=== PATIENT | female | born 1980 | race Caucasian/White ===

== ENCOUNTER 2019-02-02 08:34 | Inpatient (IN) | payer OTHER ==
--- OUTSIDE RECORDS SUMMARY | ~2019-02-02 | XMS | Encounter Summary ---
Demographics + + + | Address | NEED ADDRESS | | | [place] [address] | + + + | Home Phone | | + + + | Preferred Language | Unknown | + + + | Marital Status | | + + + | Zoroastrianism Affiliation | Unknown | + + + | Race | Unknown | + + + | Ethnic Group | Unknown | + + + Author + + + | Author | [facility] | | | and [place] | + + + | Organization | [facility] | | | and [place] | + + + | Address | Unknown | + + + | Phone | Unavailable | + + + Support + + + + + | Name | Relationship | Address | Phone | + + + + + | Frances Borjas | ECON | [address] | | | | | [place] | | | | | [address] | | + + + + + Care Team Providers + +------+ + | Care Grader Green Meat Name | Role | Phone | + +------+ + | Susan Gore NP | PCP | | + +------+ + Encounter Details +--------+ + + + + | Date | Type | Department | Care Team | Description | +--------+ + + + + | 11/05/ | Orders Only | [facility] | Jeanine Blevins, | Encounter for | | 2019 | | [facility] | MD [address] | supervision of other | | | | [facility] | [address], | normal , | | | | [address] | [place] [address] | second trimester | | | | [address], | [phone] | | | | | [place] [address] | | | | | | [phone] | | | +--------+ + + + + Social History + +-------+ +--------+------+ | Tobacco Use | Types | Packs/Day | Years | Date | | | | | Used | | + +-------+ +--------+------+ | Never Smoker | | | | | + +-------+ +--------+------+ + + + | Sex Assigned at | Date Recorded | | | | + + + | Not on file | | + + + + + + + | Job Start Date | Occupation | Industry | + + + + | Not on file | Not on file | Not on file | + + + + + + + + | Travel History | Travel Start | Travel End | + + + + + + | No recent travel history available. | + + documented as of this encounter Plan of Treatment + + +--------+ + + | Name | Type | Priori | Associated Diagnoses | Order Schedule | | | | ty | | | + + +--------+ + + | Culture, Urine | Microbiolog | Routin | Encounter for | Expected: | | | y | e | supervision of other | 09/15/2018, Expires: | | | | | normal , | 09/16/2019 | | | | | second trimester | | + + +--------+ + + documented as of this encounter Visit Diagnoses + + | Diagnosis | + + | Encounter for supervision of other normal , second trimester | + + documented in this encounter"
--- OUTSIDE RECORDS SUMMARY | ~2019-02-02 | XMS | Encounter Summary ---
Demographics + + + | Address | NEED ADDRESS | | | [place] [address] | + + + | Home Phone | | + + + | Preferred Language | Unknown | + + + | Marital Status | | + + + | Episcopal Affiliation | Unknown | + + + | Race | Unknown | + + + | Ethnic Group | Unknown | + + + Author + + + | Author | [facility] | | | and [place] | + + + | Organization | [facility] | | | and [...] [place] | | | | | [address] | | + + + + + Care Team Providers + +------+ + | Care Pest Control Supervisor Name | Role | Phone | + +------+ + | Susan Gore NP | PCP | | + +------+ + Encounter Details +--------+ + + + + | Date | Type | Department | Care Team | Description | +--------+ + + + + | 05/29/ | Orders Only | [facility] | Bety Adkins, | | | 2018 | | [address] | [address] | | | | | [place], [place] | [address] | | | | | [address] | [place] [address] | | | | | [phone] | [phone] | | | | | | | | +--------+ + + + + Social History + +-------+ +--------+------+ | Tobacco Use | Types | Packs/Day | Years | Date | | | | | Used | | + +-------+ +--------+------+ | Never Assessed | | | | | + +-------+ [...] as of this encounter Plan of Treatment Not on filedocumented as of this encounter Procedures + +--------+ + + + | Procedure Name | Priori | Date/Time | Associated Diagnosis | Comments | | | ty | | | | + +--------+ + + + | EXTERNAL LAB: CBC | Routin | 08/18/2018 | | Results for this | | | e | 3:16 PM | | procedure are in the | | | | PDT | | results section. | + +--------+ + + + | MATERNAL SCREEN, 1ST | Routin | 08/18/2018 | | Results for this | | TRIMESTER | e | 3:16 PM | | procedure are in the | | | | PDT | | results section. | + +--------+ + + + | HEMOGLOBIN A1C | Routin | 08/18/2018 | | Results for this | | | e | 3:16 PM | | procedure are in the | | | | PDT | | results section. | + +--------+ + + + documented in this encounter Results Maternal Screen, 1st Trimester (08/18/2018 3:16 PM PDT) + + + + + + | Component | Value | Ref Range | Performed | Pathologist | | | | | At | Signature | + + + + + + | Screen | Report | | EXTERNAL | | | Result | | | LAB | | + + + + + + | DS Screen | *Screen Negative* | | EXTERNAL | | | Result | | | LAB | | + + + + + + | CROWN RUMP | 69.5 | | EXTERNAL | | | LENGTH | | | LAB | | + + + + + + | CRL Scan | Date:Comment: | | EXTERNAL | | | | | | LAB | | | | 08/18/2018 | | | | + + + + + + | TELECOMMUNICATIONS PROFESSIONAL | [id number] | | EXTERNAL | | | | | | LAB | | | CERTIFICATI | | | | | | ON # | | | | | + + + + + + | Gestational | 13.0 | wk | EXTERNAL | | | age | | | LAB | | + + + + + + | Maternal | 38.1 | a | EXTERNAL | | | age AT LEONELA | | | LAB | | + + + + + + | Race | | | EXTERNAL | | | | | | LAB | | + + + + + + | Patient | 174 | [lb_av] | EXTERNAL | | | Weight | | | LAB | | + + + + + + | NUMBER OF | 1 | | EXTERNAL | | | FETUSES | | | LAB | | + + + + + + | Nuchal | 1.9 | mm | EXTERNAL | | | Translucenc | | | LAB | | | y MoM | | | | | + + + + + + | Result | 1.11 | | EXTERNAL | | | | | | LAB | | + + + + + + | hCG MoM, | 82.4 | [iU]/mL | EXTERNAL | | | 1st | | | LAB | | | Trimester | | | | | | (REF) | | | | | + + + + + + | hCG MoM, | 1.05 | | EXTERNAL | | | 1st | | | LAB | | | Trimester | | | | | | (REF) | | | | | + + + + + + | Patient's | 1014.6 | ng/mL | EXTERNAL | | | hCG, 1st | | | LAB | | | Trimester | | | | | | (REF) | | | | | + + + + + + | hCG MoM, | 1.10 | | EXTERNAL | | | 1st | | | LAB | | | Trimester | | | | | | (REF) | | | | | + + + + + + | Inhibin A | 154.5 | pg/mL | EXTERNAL | | | | | | LAB | | + + + + + + | WHITNEY Mom | 0.75 | | EXTERNAL | | | Value | | | LAB | | + + + + + + | DS RISK | Screening Risk:Comment: | | EXTERNAL | | | (MATERNAL | | | LAB | | | AGE) | 1 in 4800 | | | | + + + + + + | DS RISK (AT | Age Risk:Comment: | | EXTERNAL | | | | 1 | | LAB | | | MID-TRIMEST | in 116 | | | | | ER) | | | | | + + + + + + | T18 Patient | Screening Risk:Comment: | | EXTERNAL | | | Risk | | | LAB | | | | <1 in 38700 | | | | + + + + + + | TRI 18 SCR | Age Risk:Comment: | | EXTERNAL | | | RISK EST | 1 | | LAB | | | | in 227 | | | | + + + + + + | Interpretat | (See Below)Comment: | | EXTERNAL | | | ion: | Screen Negative for Down | | LAB | | | | syndrome | | | | + + + + + + | T18 Risk | (See Below)Comment: | | EXTERNAL | | | Interpretat | Screen Negative for | | LAB | | | ion | Trisomy 18 | | | | + + + + + + | Comment | (See Below)Comment: The | | EXTERNAL | | | | [employer] | | LAB | | | | Obstetricians and | | | | | | Gynecologists | | | | | | recommendsthat all women | | | | | | be counseled regarding | | | | | | the differences | | | | | | betweenscreening and | | | | | | invasive diagnostic | | | | | | testing. | | | | + + + + + + | Note: | (See Below)Comment: This | | EXTERNAL | | | | test does not screen | | LAB | | | | for open neural tube | | | | | | defects(ONTD). Measuring | | | | | | MS-AFP (test number | | | | | | [id number]) in the | | | | | | secondtrimester can | | | | | | provide ONTD screening. | | | | | | The optimalgestational | | | | | | age for ONTD screening | | | | | | is 16 - 18 | | | | | | weeks.Alyssa Be | | | | | | Ai, Ph.D., | | | | | | FACPrincipal Genetics | | | | | | Technical | | | | | | DirectorReferences: | | | | | | Available upon | | | | | | requestRisk CutoffsDown | | | | | | Syndrome (DS) cutoff | | | | | | 1:250Trisomy 18 (T18) | | | | | | cutoff 1:100For | | | | | | further inquiries | | | | | | contact [facility] | | | | | | Services | | | | | | [phone]. | | | | + + + + + + + + | Specimen | + + | | + + + +---------+ + + | Performing | Address | City/State/Zipcode | Phone Number | | Organization | | | | + +---------+ + + | EXTERNAL LAB | | | | + +---------+ + + External Lab: CBC (08/18/2018 3:16 PM PDT) + + + + + + | Component | Value | Ref Range | Performed | Pathologist | | | | | At | Signature | + + + + + + | WBC | 9.21 | 3.80 - 11.00 | EXTERNAL | | | | | 10*3/uL | LAB | | + + + + + + | RED CELL | 3.84 | 3.70 - 5.10 | EXTERNAL | | | COUNT | | 10*6/uL | LAB | | + + + + + + | Hgb | 12.1 | 11.3 - 15.5 | EXTERNAL | | | | | g/dL | LAB | | + + + + + + | Hematocrit, | 35.8 | 34.0 - 46.0 % | EXTERNAL | | | POC | | | LAB | | + + + + + + | MCV | 93.2 | 80.0 - 100.0 fL | EXTERNAL | | | | | | LAB | | + + + + + + | MCH | 31.4 | 27.0 - 34.0 pg | EXTERNAL | | | | | | LAB | | + + + + + + | MCHC | 33.7 | 32.0 - 35.5 | EXTERNAL | | | | | g/dL | LAB | | + + + + + + | RDW-CV | 44.6 | 37 - 53 fL | EXTERNAL | | | | | | LAB | | + + + + + + | Platelet | 253 | 150 - 400 | EXTERNAL | | | Count | | 10*3/uL | LAB | | | Plasma | | | | | + + + + + + | MPV | 9.5 | fL | EXTERNAL | | | | | | LAB | | + + + + + + | Differentia | AUTOMATED | | EXTERNAL | | | l Type | | | LAB | | + + + + + + | % Segmented | 69.49 | % | EXTERNAL | | | | | | LAB | | | Neutrophils | | | | | + + + + + + | % | 24.22 | % | EXTERNAL | | | Lymphocytes | | | LAB | | + + + + + + | % Monocytes | 4.82 | % | EXTERNAL | | | | | | LAB | | + + + + + + | % | 1.14 | % | EXTERNAL | | | Eosinophils | | | LAB | | + + + + + + | % Basophils | 0.33 | % | EXTERNAL | | | | | | LAB | | + + + + + + | Absolute | 6.40 | 1.90 - 7.40 | EXTERNAL | | | Segmented | | 10*3/uL | LAB | | | Neutrophils | | | | | + + + + + + | Absolute | 2.23 | 1.00 - 3.90 | EXTERNAL | | | Lymphocytes | | 10*3/uL | LAB | | + + + + + + | Absolute | 0.44 | 0.00 - 0.80 | EXTERNAL | | | Monocytes | | 10*3/uL | LAB | | + + + + + + | Absolute | 0.11 | 0.00 - 0.50 | EXTERNAL | | | Eosinophils | | 10*3/uL | LAB | | + + + + + + | Absolute | 0.03 | 0.00 - 0.10 | EXTERNAL | | | Basophils | | 10*3/uL | LAB | | + + + + + + + + | Specimen | + + | Blood specimen | | (specimen) | + + + +---------+ + + | Performing | Address | City/State/Zipcode | Phone Number | | Organization | | | | + +---------+ + + | EXTERNAL LAB | | | | + +---------+ + + Hemoglobin A1C (08/18/2018 3:16 PM PDT) + + + + + + | Component | Value | Ref Range | Performed | Pathologist | | | | | At | Signature | + + + + + + | Hemoglobin | 4.9Comment: HbA1c method | 4.0 - 6.0 % | EXTERNAL | | | A1c | is certified by [facility] | | LAB | | | | and traceable to the | | | | | | DCCT reference method. | | | | | | ADA guidelines indicate: | | | | | | Prediabetes: 5.7 - | | | | | | 6.4 Diabetes: >6.4 | | | | | | Glycemic control | | | | | | for adults with | | | | | | diabetes: <7.0 Effective | | | | | | 04/07/2018: Note New | | | | | | Method | | | | + + + + + + | Glycohemogl | 94Comment: Estimated | mg/dL | EXTERNAL | | | obin | Average Glucose | | LAB | | | (GHb),Total | calculated from | | | | | | hemoglobin A1c by use of | | | | | | the ADA recommended | | | | | | formula. | | | | + + + + + + + + | Specimen | + + | Blood specimen | | (specimen) | + + + +---------+ + + | Performing | Address | City/State/Zipcode | Phone Number | | Organization | | | | + +---------+ + + | EXTERNAL LAB | | | | + +---------+ + + documented in this encounter Visit Diagnoses Not on filedocumented in this encounter"
--- OUTSIDE RECORDS SUMMARY | ~2019-02-02 | XMS | Encounter Summary ---
Demographics + + + | Address | NEED ADDRESS | | | [place] [address] | + + + | Home Phone | | + + + | Preferred Language | Unknown | + + + | Marital Status | | + + + | Jehovah'S Witness Affiliation | Unknown | + + + | Race | Unknown | + + + | Ethnic Group | Unknown | + + + Author + + + | Author | [facility] | | | and [place] | + + + | Organization | [facility] | | | and [...] [place] | | | | | [address] | | + + + + + Care Team Providers + +------+ + | Care Cover Operator Name | Role | Phone | + +------+ + | Susan Gore NP | PCP | | + +------+ + Encounter Details +--------+ + + + + | Date | Type | Department | Care Team | Description | +--------+ + + + + | 11/10/ | Hospital | [facility] | Jeanine Blevins, | Diagnosis unknown | | 2019 | Encounter | [facility] | MD [address] | | | | | [address] | [address], | | | | | [address] | [place] [address] | | | | | [place], [place] | [phone] | | | | | [address] | | | | | | [phone] | | | +--------+ + + + [...] + + documented as of this encounter Medications at Time of Discharge + + + +---------+ + + | Medication | Sig | Dispensed | Refills | Start | End Date | | | | | | Date | | + + + +---------+ + + | Fish Oil 1000 MG | Take 1 g by mouth | | 0 | 07/22/19 | | | delayed release | daily. | | | 19 | | | capsule | | | | | | + + + +---------+ + + | | Take by mouth. | | 0 | 07/22/19 | | | VIT-DSS-FE CBN-FA PO | | | | 19 | | + + + +---------+ + + documented as of this encounter Plan of Treatment Not on filedocumented as of this encounter Procedures + +--------+ + + + | Procedure Name | Priori | Date/Time | Associated Diagnosis | Comments | | | ty | | | | + +--------+ + + + | US OB FOLLOW UP | Routin | 11/10/2018 | Diagnosis unknown | Results for this | | TRANSABDOMINAL | e | 11:00 AM | | procedure are in the | | | | PDT | | results section. | + +--------+ + + + documented in this encounter Results US OB Follow Up Transabdominal (11/10/2018 11:00 AM PDT) + + | Specimen | + + | | + + + +--------- ------+ | Narrative | Performe d At | + +--------- ------+ | Indication | [facility] | | ========= F/U 4 chamber heart, growth, legs and arms. Method ====== | | | Transabdominal ultrasound examination, Voluson E10. View: Sufficient | | | ========= Lora . Number of fetuses: 1. | | | Dating ====== | | | Date Details | | | | | | Gest. age | | | LEONELA External assessment | | | | | | | | | 24 w + 4 d | | | 02/26/2019 U/S | | | 11/10/2018 | | | based upon AC, BPD, Femur, HC | | | 24 w + 5 d | | | 02/25/2019 Assigned dating Dating | | | performed on 11/10/2018, based on the external assessment | | | 24 w + 4 d | | | 02/26/2019 General Evaluation Cardiac | | | activity present. FHR 152 bpm. movements visualized, present. | | | Presentation cephalic. Placenta posterior. Amniotic fluid Amount of | | | AF: Subjectively normal. Biometry Main | | | Biometry: BPD | | | 60.8 mm | | | 24w 5d 49% | | | Hadlock OFD | | | 81.1 mm | | | 24w 4d 65% | | | Nicolaides HC | | | 227.1 mm | | | 24w 5d 36% | | | Hadlock AC | | | 201.3 mm | | | 24w 5d 47% | | | Hadlock Femur | | | 44.3 mm 24w | | | 4d 37% | | | Hadlock HC / AC | | | 1.13 | | | -/- 50% | | | Paredes Weight Calculation: EFW | | | 724 g | | | 24w 3d | | | 45% Hadlock EFW (lb,oz) | | | 1 lb 10 oz EFW by | | | Hadlock | | | ([id number]) Head / Face / Neck Biometry: Cephalic index | | | 0.75 | | | | | | 21% Chitty Extremities / Bony Struc | | | Biometry: FL / BPD | | | 0.73 | | | -/- | | | Hadlock FL / HC | | | 0.20 | | | -/- | | | Hadlock FL / AC | | | 0.22 | | | 20w 3d | | | Hadlock Other Structures | | | Biometry: FHR | | | 152 bpm | | | Maternal Structures Cervix | | | Cervical length 40.6 mm Human Resource Analyst | | | Comments Measurements compatible with dates. | | | Cervical length appears within normal limits. 4 chamber heart | | | visualized. Upper and lower extremities visualized. Scanned by Tyrell | | | jania Douglas and revenue manager listed below. Impression ========= | | | as above single live iup, fhr 152, casandra normal cervix reassuring, the | | | 4 chamber heart is wnl and the extremities are seen and appear normal. | | | the interval growth is symetric and also normal Electronically | | | signed by: Pradip Ruffin MD on 12/10/2018 at 16:14 | | | | | |Scanned by jania Finnegan and revenue manager listed below. | | | | | |Impression | | |========= | | | | | |as above single live iup, fhr 152, casandra normal cervix reassuring, the 4 chamber heart is wnl and the extremities are seen and appear normal. the interval growth is symetric | | |and also normal | | | | | | | | | | | | | | + +--------- ------+ + + | Procedure Note | + + | Mirza, Rad Results In - 12/10/2018 4:14 PM PDT Indication ========= F/U 4 chamber | | heart, growth, legs and arms. Method ====== Transabdominal ultrasound examination, | | Voluson E10. View: Sufficient ========= Lora . Number of | | fetuses: 1. Dating ====== Date | | Details | | Gest. age LEONELA External assessment | | | | 24 w + 4 d 02/26/2019 | | U/S 11/10/2018 based upon AC, | | BPD, Femur, HC 24 w + 5 d | | 02/25/2019 Assigned dating Dating performed on 11/10/2018, based on | | the external assessment 24 w + 4 d | | 02/26/2019 General Evaluation Cardiac activity present. FHR 152 bpm. | | movements visualized, present. Presentation cephalic. Placenta posterior. | | Amniotic fluid Amount of AF: Subjectively normal. Biometry Main | | Biometry: BPD 60.8 mm | | 24w 5d 49% Hadlock OFD | | 81.1 mm 24w 4d | | 65% Nicolaides HC | | 227.1 mm 24w 5d 36% | | Hadlock AC 201.3 mm | | 24w 5d 47% Hadlock Femur | | 44.3 mm 24w 4d | | 37% Hadlock HC / AC | | 1.13 -/- 50% | | Paredes Weight Calculation: EFW | | 724 g 24w 3d 45% | | Hadlock EFW (lb,oz) 1 lb 10 oz | | EFW by Hadlock ([id number]) Head / Face / Neck | | Biometry: Cephalic index 0.75 | | 21% Chitty Extremities / | | Bony Struc Biometry: FL / BPD 0.73 | | -/- Hadlock | | FL / HC 0.20 | | -/- Hadlock FL / AC | | 0.22 20w 3d | | Hadlock Other Structures Biometry: FHR | | 152 bpm Maternal | | Structures Cervix Cervical length 40.6 | | mm Human Resource Analyst Comments Measurements compatible with dates. | | Cervical length appears within normal limits. 4 chamber heart visualized. Upper and | | lower extremities visualized. Scanned by Tyrell Douglas, student and revenue manager listed | | below. Impression ========= as above single live iup, fhr 152, casandra normal cervix | | reassuring, the 4 chamber heart is wnl and the extremities are seen and appear normal. | | the interval growth is symetric and also normal | |EFW 724 g 24w 3d 45% Hadlock | |EFW (lb,oz) 1 lb 10 oz | |EFW by Hadlock ([id number]) | |Head / Face / Neck Biometry: | |Cephalic index 0.75 21% Chitty | |Extremities / Bony Struc Biometry: | |FL / BPD 0.73 -/- Hadlock | |FL / HC 0.20 -/- Hadlock | |FL / AC 0.22 20w 3d Hadlock | |Other Structures Biometry: | |FHR 152 bpm | | | |Maternal Structures | | | | | |Cervix Cervical length 40.6 mm | | | |Human Resource Analyst Comments | | | | | |Measurements compatible with dates. | |Cervical length appears within normal limits. | |4 chamber heart visualized. | |Upper and lower extremities visualized. | | | |Scanned by Tyrell Douglas, student and revenue manager listed below. | | | |Impression | |========= | | | |as above single live iup, fhr 152, casandra normal cervix reassuring, the 4 chamber heart is wnl and the extremities are seen and appear normal. the interval growth is symetric | |and also normal | | | | | | | + + + +---------+ + + | Performing | Address | City/State/Zipcode | Phone Number | | Organization | | | | + +---------+ + + | [facility] | | | | + +---------+ + + documented in this encounter Visit Diagnoses + + | Diagnosis | + + | Diagnosis unknown Other unknown and unspecified cause of morbidity or mortality | + + documented in this encounter"
--- OUTSIDE RECORDS SUMMARY | ~2019-02-02 | XMS | Encounter Summary ---
Demographics + + + | Address | NEED ADDRESS | | | [place] [address] | + + + | Home Phone | | + + + | Preferred Language | Unknown | + + + | Marital Status | | + + + | Mosque Affiliation | Unknown | + + + | Race | Unknown | + + + | Ethnic Group | Unknown | + + + Author + + + | Author | [facility] | | | and [place] | + + + | Organization | [facility] | | | and [...] [place] | | | | | [address] | | + + + + + Care Team Providers + +------+ + | Care Architect Marine Name | Role | Phone | + +------+ + | Susan Gore NP | PCP | | + +------+ + Encounter Details +--------+ + + + + | Date | Type | Department | Care Team | Description | +--------+ + + + + | 10// | Orders Only | [facility] | Conversion | | | 2017 | | CONVERSION [address] | Transaction, | | | | | [address] | Provider Unknown | | | | | [place], [place] | [phone] | | | | | [address] | | | | | | [phone] | | | +--------+ + + + [...] Not on filedocumented as of this encounter Visit Diagnoses Not on filedocumented in this encounter"
--- OUTSIDE RECORDS SUMMARY | ~2019-02-02 | XMS | Encounter Summary ---
Demographics + + + | Address | NEED ADDRESS | | | [place] [address] | + + + | Home Phone | | + + + | Preferred Language | Unknown | + + + | Marital Status | | + + + | Taoist Affiliation | Unknown | + + + | Race | Unknown | + + + | Ethnic Group | Unknown | + + + Author + + + | Author | [facility] | | | and [place] | + + + | Organization | [facility] | | | and [place] | + + + | Address | Unknown | + + + | Phone | Unavailable | + + + Support + + + + + | Name | Relationship | Address | Phone | + + + + + | Frances Borjas | ECON | [address] | | | | | [place] | | | | | [address] | | + + + + + Care Team Providers + +------+ + | Care Aircraft Tool Maker Name | Role | Phone | + +------+ + PCP | Unavailable | + +------+ + Encounter Details +--------+ + + + + | Date | Type | Department | Care Team | Description | +--------+ + + + + | 12/23/ | Emergency | [facility] | Lorenzo Dominguez DO | Pneumonia of right | | 2017 | | MEDICAL [facility]ENTER | [address] [place] | upper lobe due to | | | | EM[facility]ENTER | [address] [place], [place] | infectious organism | | | | [address] | [address] | (HCC) | | | | [place], [place] | [phone] | | | | | [address] | | | | | | [phone] | | | +--------+ + + + [...] + + documented as of this encounter Last Filed Vital Signs + + + + + | Vital Sign | Reading | Time Taken | Comments | + + + + + | Blood Pressure | 123/76 | 12/23/2016 6:14 PM | | | | | PDT | | + + + + + | Pulse | 89 | 12/23/2016 6:14 PM | | | | | PDT | | + + + + + | Temperature | 36.9 C (98.4 F) | 12/23/2016 6:14 PM | | | | | PDT | | + + + + + | Respiratory Rate | 16 | 12/23/2016 6:14 PM | | | | | PDT | | + + + + + | Oxygen Saturation | - | - | | + + + + + | Inhaled Oxygen | - | - | | | Concentration | | | | + + + + + | Weight | 75.9 kg (167 lb 5.3 | 12/23/2016 6:14 PM | | | | oz) | PDT | | + + + + + | Height | - | - | | + + + + + | Body Mass Index | 26.21 | 09/08/2016 3:34 PM | | | | | PDT | | + + + + + documented in this encounter Medications at Time of Discharge + + + +---------+ + + | Medication | Sig | Dispensed | Refills | Start | End Date | | | | | | Date | | + + + +---------+ + + | | Take 5 mLs by mouth | | 0 | 12/24/19 | | | acetaminophen-codein | every 6 (six) hours | | | 17 | 9 | | e 120-12 mg/5 mL | as needed for Pain. | | | | | | solution | | | | | | + + + +---------+ + + documented as of this encounter Plan of Treatment Not on filedocumented as of this encounter Visit Diagnoses + + | Diagnosis | + + | Pneumonia of right upper lobe due to infectious organism (HCC) | + + documented in this encounter"
--- OUTSIDE RECORDS SUMMARY | ~2019-02-02 | XMS | Clinical Summary ---
Demographics + + + | Address | NEED ADDRESS | | | [place] [address] | + + + | Home Phone | | + + + | Preferred Language | Unknown | + + + | Marital Status | | + + + | Taoism Affiliation | Unknown | + + + | Race | Unknown | + + + | Ethnic Group | Unknown | + + + Author + + + | Author | [facility] (Historical as of | | | 11-06-18) | + + + | Organization | [facility] (Historical as of | | | 11-06-18) | + + + | Address | Unknown | + + + | Phone | Unavailable | + + + Support + + +---------+ + | Name | Relationship | Address | Phone | + + +---------+ + | Frances Borjas | ECON | Unknown | | + + +---------+ + Care Team Providers + +------+ + | Care Digital Imaging Specialist Name | Role | Phone | + +------+ + | Susan Gore NP | PP | Unavailable | + +------+ + Allergies + + + + + + | Active Allergy | Reactions | Severity | Noted | Comments | | | | | Date | | + + + + + + | Doxycycline | Other (See Comments) | Medium | 03/01/20 | Flu like symptoms. | | | | | 19 | | + + + + + + Current Medications + + +-------+---------+------+------+-------+ | Prescription | Sig. | Disp. | Refills | Star | End | Statu | | | | | | t | Date | s | | | | | | Date | | | + + +-------+---------+------+------+-------+ | | Take 5 mLs by mouth | | | | | Activ | | acetaminophen-codein | every 6 (six) hours | | | | | e | | e 120-12 MG/5ML | as needed for Pain. | | | | | | | solution | | | | | | | + + +-------+---------+------+------+-------+ | | Take by mouth. | | | | | Activ | | Vit-DSS-Fe Cbn-FA | | | | | | e | | (PRENACARE PO) | | | | | | | + + +-------+---------+------+------+-------+ | fish oil omega-3 | Take 1 g by mouth | | | | | Activ | | fatty acids 1000 MG | daily. | | | | | e | | capsule | | | | | | | + + +-------+---------+------+------+-------+ Active Problems + + + | Problem | Noted Date | + + + | Breast pain, right | 10/12/2018 | + + + + + | Overview: 10/12/18: reports onset of right breast pain, no | | palpable masses, hx of implantsPlan: breast US ordered | |Plan: breast US ordered | + + + + + | Encounter for supervision of normal in second trimester | 09/15/2018 | + + + | Surrogate , antepartum | 07/21/2018 | + + + | Antepartum multigravida of advanced maternal age | 07/21/2018 | + + + + + | Overview: A POS: negative antibody | + + + + + + | Currently | Estimated Date of Delivery | Comments | + + + + | Yes | 02/26/2019 | Based on last | | | | menstrual period of | | | | 05/22/2018 | + + + + Immunizations +------+ + + | Name | Dates Previously Given | Next Due | +------+ + + | Tdap | 05/09/2009 | | +------+ + + Family History + + +------+ + | Medical History | Relation | Name | Comments | + + +------+ + | Mult sclerosis | Paternal | | | | | Grandmoth | | | | | er | | | + + +------+ + | Breast cancer | Neg Hx | | | + + +------+ + | Diabetes type I | Neg Hx | | | + + +------+ + | Diabetes type II | Neg Hx | | | + + +------+ + | Heart defect | Neg Hx | | | + + +------+ + | Heart disease | Neg Hx | | | + + +------+ + | Uterine cancer | Neg Hx | | | + + +------+ + + +------+ + + | Relation | Name | Status | Comments | + +------+ + + | Father | | Alive | | + +------+ + + | Maternal Grandfather | | | | + +------+ + + | Maternal Grandmother | | Alive | | + +------+ + + | Mother | | Alive | | + +------+ + + | Paternal Grandfather | | | | + +------+ + + | Paternal Grandmother | | | | + +------+ + + | Sister | | Alive | | + +------+ + + Social History + +-------+ +--------+------+ | Tobacco Use | Types | Packs/Day | Years | Date | | | | | Used | | + +-------+ +--------+------+ | Never Smoker | | | | | + +-------+ +--------+------+ + +---+---+---+ | Smokeless Tobacco: | | | | | Never Used | | | | + +---+---+---+ + + +---------+ + | Alcohol Use | Drinks/We | oz/Week | Comments | | | ek | | | + + +---------+ + | No | | | social | + + +---------+ + + + + + | Currently | Estimated Date of Delivery | Comments | + + + + | Yes | 02/26/2019 | Based on last | | | | menstrual period of | | | | 05/22/2018 | + + + + + + + | Sex Assigned at | Date Recorded | | | | + + + | Not on file | | + + + Last Filed Vital Signs + + + + | Vital Sign | Reading | Time Taken | + + + + | Blood Pressure | 100/54 | 10/12/2018 11:42 AM PDT | + + + + | Pulse | 62 | 07/21/2018 8:40 AM PDT | + + + + | Temperature | 36.6 C (97.9 F) | 07/21/2018 8:40 AM PDT | + + + + | Respiratory Rate | 24 | 03/01/2018 5:48 PM PST | + + + + | Oxygen Saturation | 100% | 07/21/2018 8:40 AM PDT | + + + + | Inhaled Oxygen | - | - | | Concentration | | | + + + + | Weight | 81.6 kg (180 lb) | 10/12/2018 11:42 AM PDT | + + + + | Height | 170.2 cm (5' 7") | 07/21/2018 8:40 AM PDT | + + + + | Body Mass Index | 28.19 | 10/12/2018 11:42 AM PDT | + + + + Plan of Treatment + + + + + | Health Maintenance | Due Date | Last Done | Comments | + + + + + | Cervical Cancer | | | | | Screening (Pap) | 1 | | | + + + + + | Vaccine: Influenza | | | | | (#1) | 9 | | | + + + + + | Vaccine: | | 05/09/2009 | | | Dtap/Tdap/Td (2 - | 0 | | | | Td) | | | | + + + + + Results Not on filefrom Last 3 Months Insurance + +--------+ +------+-------+---------+ | Payer | Benefi | Subscriber | Type | Phone | Address | | | t Plan | ID | | | | | | / | | | | | | | Group | | | | | + +--------+ +------+-------+---------+ | [employer] | PROVID | [id number] | PPO | | | | PLAN | ENCE | | | | | | | HEALTH | | | | | | | PLAN | | | | | + +--------+ +------+-------+---------+ + +--------+ +--------+ + + | Guarantor Name | Accoun | Relation to | Date | Phone | Billing Address | | | t Type | Patient | of | | | | | | | | | | + +--------+ +--------+ + + | JOE KRISHNAN | Person | Self [birth year] | Home: | NEED ADDRESS | | | al/Fam | | 1979 | +- | [place] | | | [place] | | | [address] | [address] | + +--------+ +--------+ + + | JOE KRISHNAN | Fertil | Self | [birth year] | Home: | NEED ADDRESS | | | ity | | 1979 | - | [place] | | | | | | [address] | [address] | + +--------+ +--------+ + +
--- OUTSIDE RECORDS SUMMARY | ~2019-02-02 | XMS | Encounter Summary ---
Demographics + + + | Address | NEED ADDRESS | | | [place] [address] | + + + | Home Phone | | + + + | Preferred Language | Unknown | + + + | Marital Status | | + + + | Caodaism Affiliation | Unknown | + + + | Race | Unknown | + + + | Ethnic Group | Unknown | + + + Author + + + | Author | [facility] | | | and [place] | + + + | Organization | [facility] | | | and [...] [place] | | | | | [address] | | + + + + + Care Team Providers + +------+ + | Care Registered Nurse Surgical Services Name | Role | Phone | + +------+ + | Susan Gore NP | PCP | | + +------+ + Encounter Details +--------+ + + + + | Date | Type | Department | Care Team | Description | +--------+ + + + + | 05/01/ | Orders Only | [facility] | Bety Adkins, | | | 2018 | | [address] | [address] | | | | | [place], [place] | [address] | | | | | [address] | [place] [address] | | | | | [phone] | [phone] | | | | | | | [...] | + +--------+ + + + | CULTURE, URINE | Routin | 07/21/2018 | | Results for this | | | e | 12:01 AM | | procedure are in the | | | | PDT | | results section. | + +--------+ + + + documented in this encounter Results Culture, Urine (07/21/2018 12:01 AM PDT) + + | Specimen | + + | Urine specimen | | (specimen) | + + + + + | Narrative | Performed At | + + + | Specimen Description URINE,CLEAN CATCH CULTURE | EXTERNAL LAB | | NO GROWTH | | + + + + +---------+ + + | Performing | Address | City/State/Zipcode | Phone Number | | Organization | | | | + +---------+ + + | EXTERNAL LAB | | | | + +---------+ + + documented in this encounter Visit Diagnoses Not on filedocumented in this encounter"
--- OUTSIDE RECORDS SUMMARY | ~2019-02-02 | XMS | Encounter Summary ---
Demographics + + + | Address | NEED ADDRESS | | | [place] [address] | + + + | Home Phone | | + + + | Preferred Language | Unknown | + + + | Marital Status | | + + + | Presybeterian Affiliation | Unknown | + + + | Race | Unknown | + + + | Ethnic Group | Unknown | + + + Author + + + | Author | [facility] | | | and [place] | + + + | Organization | [facility] | | | and [...] [place] | | | | | [address] | | + + + + + Care Team Providers + +------+ + | Care Yacht Hand Name | Role | Phone | + +------+ + | Susan Gore NP | PCP | | + +------+ + Encounter Details +--------+ + + + + | Date | Type | Department | Care Team | Description | +--------+ + + + + | 06/26/ | Orders Only | [facility] | Jeanine Blevins, | | | 2018 | | [address] | [address] | | | | | [place], [place] | [address] [place], | | | | | [address] | [place] [address] | | | | | [phone] | [phone] | | | | | | | [...] | + +--------+ + + + | GC/CHLAM APTIMA | Routin | 09/15/2018 | | Results for this | | | e | 12:01 AM | | procedure are in the | | | | PDT | | results section. | + +--------+ + + + documented in this encounter Results GC/Chlam Aptima (09/15/2018 12:01 AM PDT) + + + + + + | Component | Value | Ref Range | Performed | Pathologist | | | | | At | Signature | + + + + + + | Source | URINE, COLLECTION NOT | | EXTERNAL | | | | GIVEN | | LAB | | + + + + + + | Chlamydia | Not Detected | | EXTERNAL | | | Trachomatis | | | LAB | | | Naat | | | | | + + + + + + | Result | Not Detected | | EXTERNAL | | | | [...]
--- OUTSIDE RECORDS SUMMARY | ~2019-02-02 | XMS | Encounter Summary ---
Demographics + + + | Address | NEED ADDRESS | | | [place] [address] | + + + | Home Phone | | + + + | Preferred Language | Unknown | + + + | Marital Status | | + + + | Mandaen Affiliation | Unknown | + + + | Race | Unknown | + + + | Ethnic Group | Unknown | + + + Author + + + | Author | [facility] | | | and [place] | + + + | Organization | [facility] | | | and [place] | + + + | Address | Unknown | + + + | Phone | Unavailable | + + + Support + + + + + | Name | Relationship | Address | Phone | + + + + + | Frances Borjas | ECON | [address] | | | | | [id number] | | | | | [address] | | + + + + + Care Team Providers + +------+ + | Care Bone Drier Operator Name | Role | Phone | + +------+ + PCP | Unavailable | + +------+ + Encounter Details +--------+ + + + + | Date | Type | Department | Care Team | Description | +--------+ + + + + | 12/23/ | Hospital | [facility] | Conversion | Diagnosis unknown | | 2017 | Encounter | CONVERSION [address] | Transaction, | | | | [address] | Provider Unknown | | | | | [place], [place] | [phone] | | | | | [phone] | (Fax) | | | | | [phone] | | | +--------+ + + + [...] | + +--------+ + + + | XR CHEST 2 VIEWS | Routin | 12/23/2016 | | Results for this | | | e | 7:08 PM | | procedure are in the | | | | PDT | | results section. | + +--------+ + + + documented in this encounter Results XR Chest 2 Vws (12/23/2016 7:08 PM PDT) + + | Specimen | + + | | + + + + + | Narrative | Performed At | + + + | This is a non-reportable procedure without a radiologist report and | | | is used for image storage only | | + + + + + | Procedure Note | + + | Reynaldo Blue Herb - 11/04/2018 3:14 AM PDT This is a non-reportable procedure | | without a radiologist report and isused for image storage only | + + documented in this encounter Visit Diagnoses + + | Diagnosis | + + | Diagnosis unknown Other unknown and unspecified cause of morbidity or mortality | + + documented in this encounter"
--- OUTSIDE RECORDS SUMMARY | ~2019-02-02 | XMS | Clinical Summary ---
Demographics + + + | Address | NEED ADDRESS | | | [place] [address] | + + + | Home Phone | | + + + | Preferred Language | Unknown | + + + | Marital Status | | + + + | Pentecostalism Affiliation | Unknown | + + + | Race | Unknown | + + + | Ethnic Group | Unknown | + + + Author + + + | Author | [facility] | | | and [place] | + + + | Organization | [facility] | | | [...] [place] | | | | | [address] | | + + + + + Care Team Providers + +------+ + | Care Robot Designer Name | Role | Phone | + +------+ + | Susan Gore NP | PCP | | + +------+ + Allergies + + [...] | + + + + + + Medications + + + +---------+------+------+-------+ | Medication | Sig | Dispensed | Refills | Star | End | Statu | | | | | | t | Date | s | | | | | | Date | | | + + + +---------+------+------+-------+ | | Take by mouth. | | 0 | 05/0 | | Activ | | VIT-DSS-FE CBN-FA PO | | | | 04/11 | | e | | | | | | 19 | | | + + + +---------+------+------+-------+ | Fish Oil 1000 MG | Take 1 g by mouth | | 0 | 05/0 | | Activ | | delayed release | daily. | | | 04/11 | | e | | capsule | | | | 19 | | | + + + +---------+------+------+-------+ Active Problems + + + | Problem | Noted Date | + + + | Breast pain, right | 10/12/2018 | + + + + + | Overview: 10/12/18: reports onset of right breast pain, no | | palpable masses, hx of implants Plan: breast US ordered | |Plan: breast US [...] + + + + + + | | Estimated Date of Delivery | Comments | + + + + | Yes | 02/26/2019 | | + + + + Immunizations + + + + | Name | Administration Dates | Next Due | + + + + | TDAP, (ADOL/ADULT) | 05/09/2009 | | + + + + Family History + + +------+ + | Medical History | Relation | Name | Comments | + + +------+ + | Multiple sclerosis | Paternal | | | | | Grandmoth | | | | | er | | | + + +------+ + | Breast cancer | Neg Hx | | | + + +------+ + | Diabetes, IDDM | Neg Hx | | | + + +------+ + | Diabetes, NIDDM | Neg Hx | | | + [...] | + +-------+ +--------+------+ + + + + | | Estimated Date of Delivery | Comments | + + + + | Yes | 02/26/2019 | | + + + + + [...] recent travel history available. | + + Last Filed Vital Signs + + + + + | Vital Sign | Reading | Time Taken | Comments | + + + + + | Blood Pressure | 100/60 | 11/10/2018 11:29 AM | | | | | PDT | | + + + + + | Pulse | 62 | 07/21/2018 9:19 AM | | | | | PDT | | + + + + + | Temperature | 36.6 C (97.9 F) | 07/21/2018 9:19 AM | | | | | PDT | | + + + + + | Respiratory Rate | 24 | 03/01/2018 5:54 PM | | | | | PST | | + + + + + | Oxygen Saturation | - | - | | + + + + + | Inhaled Oxygen | - | - | | | Concentration | | | | + + + + + | Weight | 83 kg (183 lb) | 11/10/2018 11:29 AM | | | | | PDT | | + + + + + | Height | 170.2 cm (5' 7") | 07/21/2018 9:19 AM | | | | | PDT | | + + + + + | Body Mass Index | 28.66 | 07/21/2018 9:19 AM | | | | | PDT | | + + + + + Plan of Treatment [...] + + + | Vaccine: | | 05/09/2009, 01/26/1996 | | | Dtap/Tdap/Td (3 - | 0 | | | | Td) | | | | + + + + + Results Not on filefrom Last 3 Months Insurance + +--------+ +--------+ +---------+------+ | Payer | Benefi | Subscriber | Effect | Phone | Address | Type | | | t Plan | ID | carly | | | | | | / | | Dates | | | | | | Group | | | | | | + +--------+ +--------+ +---------+------+ | [facility] | [facility] | [id number] | 03/23/19 | [phone] | | PPO | | PLAN | PERSON | | 19-Pre | 5 | | | | | AL | | sent | | | | | | OPEN | | | | | | | | OPTION | | | | | | + +--------+ +--------+ +---------+------+ + +--------+ +--------+ + + | Guarantor Name | Accoun | Relation to | Date | Phone | Billing Address | | | t Type | Patient | of | | | | | | | | | | + +--------+ +--------+ + + | Kimberly Olsen | Person | Self [birth year] | NEED ADDRESS | | | al/Fam | | 1980 | [phone] | [place] | | | [place] | | | [address] (Home) | [address] | + +--------+ +--------+ + + Advance Directives + + + + + | Type | Date Recorded | Patient | Explanation | | | | Kiln Car Unloader | | + + + + + | Power of | | | | | Bread Stacker | | | | + + + + + | Advance | | | | | Directive | | | | + + + + +
--- OUTSIDE RECORDS SUMMARY | ~2019-02-02 | XMS | Encounter Summary ---
Demographics + + + | Address | NEED ADDRESS | | | [place] [address] | + + + | Home Phone | | + + + | Preferred Language | Unknown | + + + | Marital Status | | + + + | Buddhist Affiliation | Unknown | + + + | Race | Unknown | + + + | Ethnic Group | Unknown | + + + Author + + + | Author | [facility] | | | and [place] | + + + | Organization | [facility] | | | [...] [place] | | | | | [address] | | + + + + + Care Team Providers + +------+ + | Care Motorcycle Repairer Name | Role | Phone | + +------+ + | Susan Gore NP | PCP | | + +------+ + Encounter Details +--------+ + + + + | Date | Type | Department | Care Team | Description | +--------+ + + + + | 10/27/ | Orders Only | [facility] | Jeanine Blevins, | | | 2019 | | [facility] | [address] | | | | | [address] | [address], | | | | | [address] [place], [place] | [place] [address] | | | | | [address] | [phone] | | | | | [phone] | | | +--------+ + + + [...] + +--------+ + + + | US BREAST LIMITED | Routin | 10/27/2018 | | Results for this | | RIGHT | e | 1:54 PM | | procedure are in the | | | | PDT | | results section. | + +--------+ + + + documented in this encounter Results US Breast Limited Right (10/27/2018 1:54 PM PDT) + + | Specimen | + + | | + + + + + | Impressions | Performed At | + + + | Only normal fibroglandular tissue. Normal parenchymal implant | | | interface. No evidence of malignancy or corresponding lesion BIRADS | | | ASSESSMENT: Benign / CATEGORY 2 RECOMMENDATION: Would return to | | | clinical care for management and assessment of symptoms. Absent | | | clinical indications otherwise, mammography at age 41 The results | | | and recommendations of today's examination were discussed with the | | | patient. Signed by: Marilou Cazares, David Sign Date/Time: | | | 10/27/2018 1:57 PM | | + + + + + + | Narrative | Performed At | + + + | ULTRASOUND BREAST LIMITED BILATERAL CLINICAL INFORMATION: Right | | | breast ultrasound for pain and follow up. COMPARISON: , | | | 04/12/2007, 04/22/2007. Administrative note: History of intervention | | | at age 27, left breast. No active issues on that side FINDINGS: | | | Breast ultrasound: A targeted ultrasound of the right breast tissue | | | was performed. No evidence of mass cyst or lesion adjacent the | | | patient's implant, in the region of pain-12:00 position near the | | | nipple | | + + + + + | Procedure Note | + + | Mirza, Rad Conversion - 11/26/2018 9:35 AM PDT ULTRASOUND BREAST LIMITED BILATERAL | | CLINICAL INFORMATION: | | Right breast ultrasound for pain and follow up. | | COMPARISON: | | , 04/12/2007, 04/22/2007. | | Administrative note: History of intervention at age 27, left breast. | | No active issues on that side | | FINDINGS: | | Breast ultrasound: A targeted ultrasound of the right breast tissue was | | performed. No evidence of mass cyst or lesion adjacent the patient's | | implant, in the region of pain-12:00 position near the nipple | | IMPRESSION: | | Only normal fibroglandular tissue. Normal parenchymal implant | | interface. | | No evidence of malignancy or corresponding lesion | | BIRADS ASSESSMENT: Benign / CATEGORY 2 | | RECOMMENDATION: Would return to clinical care for management and | | assessment of symptoms. Absent clinical indications otherwise, | | mammography at age 41 | | The results and recommendations of today's examination were discussed | | with the patient. | | Signed by: Sage, M.D., David | | Sign Date/Time: 10/27/2018 1:57 PM | + + documented in this encounter Visit Diagnoses Not on filedocumented in this encounter"
--- OUTSIDE RECORDS SUMMARY | ~2019-02-02 | XMS | Encounter Summary ---
Demographics + + + | Address | NEED ADDRESS | | | [place] [address] | + + + | Home Phone | | + + + | Preferred Language | Unknown | + + + | Marital Status | | + + + | Nondenominational Affiliation | Unknown | + + + | Race | Unknown | + + + | Ethnic Group | Unknown | + + + Author + + + | Author | [facility] | | | and [place] | + + + | Organization | [facility] | | [...] [place] | | | | | [address] | | + + + + + Care Team Providers + +------+ + | Care Inlayer Silver Name | Role | Phone | + +------+ + | Susan Gore NP | PCP | | + +------+ + Encounter Details +--------+ + + + + | Date | Type | Department | Care Team | Description | +--------+ + + + + | 11/10/ | Routine | [facility] | Epifanio Bojorquez, | [place]: | | 2019 | | [facility] | [address] | | | | | [facility] | [address] | | | | | [address] | [place] [address] | | | | | [address] [place], | [phone] | | | | | [place] [address] | | | | | | [phone] | | | +--------+ + + + [...] + + + + | Pulse | - | - | | + + + + + | Temperature | - | - | | + + + + + | Respiratory Rate | - | - | | + [...] + + + documented in this encounter Progress Notes Epifanio Bojorquez PA-C - 11/10/2018 11:30 AM PDTIWlb TWlb Concerns: no concerns today. Interested in induction due to surrogate , parents w ill want to be present. OBGCT and H/H ordered. Antibody screen: Not eligible. GCT instruction sheet given. 1:4 9 PM PDTdocumented in this encounter Plan of Treatment + +------+--------+ + + | Name | Type | Priori | Associated Diagnoses | Order Schedule | | | | ty | | | + +------+--------+ + + | Gestational Glucose | Lab | Routin | Antepartum | Expected: | | Test, 1Hr | | e | multigravida of | 12/11/2018, Expires: | | | | | advanced maternal | 11/11/2019 | | | | | age | | + +------+--------+ + + | Hemoglobin and | Lab | Routin | Antepartum | 1 Occurrences | | Hematocrit | | e | multigravida of | starting 11/10/2018 | | | | | advanced maternal | until 11/11/2019 | | | | | age | | + +------+--------+ + + documented as of this encounter Visit Diagnoses + + | Diagnosis | + + | Antepartum multigravida of advanced maternal age - Primary | + + | Surrogate , antepartum | + + documented in this encounter"
--- OUTSIDE RECORDS SUMMARY | ~2019-02-02 | XMS | Encounter Summary ---
Demographics + + + | Address | NEED ADDRESS | | | [place] [address] | + + + | Home Phone | | + + + | Preferred Language | Unknown | + + + | Marital Status | | + + + | Voodoo Affiliation | Unknown | + + + | Race | Unknown | + + + | Ethnic Group | Unknown | + + + Author + + + | Author | [facility] | | | and [place] | + + + | Organization | [facility] | | | [...] [place] | | | | | [address] | | + + + + + Care Team Providers + +------+ + | Care Picking Table Worker Name | Role | Phone | + [...] CAYLA BLACKWELL | | | | | [place], [place] | [address], | | | | | [address] | [place] [address] | | | | | [phone] | [phone] | | | | | | | [...] | + +--------+ + + + | HIV 1 AND 2 ANTIBODY | Routin | 09/15/2018 | | Results for this | | DIFFERENTIATION | e | 1:51 PM | | procedure are in the | | | | PDT | | results section. | + +--------+ + + + | OBSTETRICS PANEL | Routin | 09/15/2018 | | Results for this | | | e | 1:51 PM | | procedure are in the | | | | PDT | | results section. | + +--------+ + + + documented in this encounter Results Obstetrics Panel (09/15/2018 1:51 PM PDT) + + + + + + | Component | Value | Ref Range | Performed | Pathologist | | | | | At | Signature | + + + + + + | WBC | 8.61 | 3.80 - 11.00 | EXTERNAL | | | | | 10*3/uL | LAB | | + + + + + + | RED CELL | 3.86 | 3.70 - 5.10 | EXTERNAL | | | COUNT | | 10*6/uL | LAB | | + + + + + + | Hgb | 12.7 | 11.3 - 15.5 | EXTERNAL | | | | | g/dL | LAB | | + + + + + + | Hematocrit, | 36.7 | 34.0 - 46.0 % | EXTERNAL | | | POC | | | LAB | | + + + + + + | MCV | 95.0 | 80.0 - 100.0 fL | EXTERNAL | | | | | | LAB | | + + + + + + | MCH | 33.0 | 27.0 - 34.0 pg | EXTERNAL | | | | | | LAB | | + + + + + + | MCHC | 34.7 | 32.0 - 35.5 | EXTERNAL | | | | | g/dL | LAB | | + + + + + + | RDW-CV | 46.4 | 37 - 53 fL | EXTERNAL | | | | | | LAB | | + + + + + + | Platelet | 250 | 150 - 400 | EXTERNAL | | | Count | | 10*3/uL | LAB | | | Plasma | | | | | + + + + + + | MPV | 9.3 | fL | EXTERNAL | | | | | | LAB | | + + + + + + | Differentia | AUTOMATED | | EXTERNAL | | | l Type | | | LAB | | + + + + + + | % Segmented | 63.58 | % | EXTERNAL | | | | | | LAB | | | Neutrophils | | | | | + + + + + + | % | 29.60 | % | EXTERNAL | | | Lymphocytes | | | LAB | | + + + + + + | % Monocytes | 5.51 | % | EXTERNAL | | | | | | LAB | | + + + + + + | % | 1.10 | % | EXTERNAL | | | Eosinophils | | | LAB | | + + + + + + | % Basophils | 0.21 | % | EXTERNAL | | | | | | LAB | | + + + + + + | Absolute | 5.47 | 1.90 - 7.40 | EXTERNAL | | | Segmented | | 10*3/uL | LAB | | | Neutrophils | | | | | + + + + + + | Absolute | 2.55 | 1.00 - 3.90 | EXTERNAL | | | Lymphocytes | | 10*3/uL | LAB | | + + + + + + | Absolute | 0.47 | 0.00 - 0.80 | EXTERNAL | | | Monocytes | | 10*3/uL | LAB | | + + + + + + | Absolute | 0.09 | 0.00 - 0.50 | EXTERNAL | | | Eosinophils | | 10*3/uL | LAB | | + + + + + + | Absolute | 0.02 | 0.00 - 0.10 | EXTERNAL | | | Basophils | | 10*3/uL | LAB | | + + + + + + | Rubella IgG | 185.5Comment: | [iU]/mL | EXTERNAL | | | Ab, Screen | Susceptible: <5.0 | | LAB | | | | Indeterminate: 5 to 10 | | | | | | Immune: >10 | | | | + + + + + + | Treponema | NON REACTIVE | | EXTERNAL | | | Pallidum Ab | | | LAB | | | Total | | | | | + + + + + + | Hepatitis B | NON REACTIVE | | EXTERNAL | | | Surface Ag | | | LAB | | + + + + + + + + | Specimen | + + | Blood specimen | | (specimen) | + + + +---------+ + + | Performing | Address | City/State/Zipcode | Phone Number | | Organization | | | | + +---------+ + + | EXTERNAL LAB | | | | + +---------+ + + HIV 1 and 2 Antibody Differentiation (09/15/2018 1:51 PM PDT) + + + + + + | Component | Value | Ref Range | Performed | Pathologist | | | | | At | Signature | + + + + + + | HIV 1 and 2 | NON REACTIVEComment: THE | | EXTERNAL | | | Ab | NON REACTIVE HIV 1/2 | | LAB | | | | RESULT INDICATES THAT | | | | | | NEITHER ANTIBODIES NOR | | | | | | P24 ANTIGEN TO HIV 1/2 | | | | | | HAVE BEEN DETECTED IN | | | | | | THIS SPECIMEN. THIS | | | | | | RESULT DOES NOT PRECLUDE | | | | | | PREVIOUS EXPOSURE OR | | | | | | INFECTION. | | | | + + + [...]
--- OUTSIDE RECORDS SUMMARY | ~2019-02-02 | XMS | Encounter Summary ---
Demographics + + + | Address | NEED ADDRESS | | | [place] [address] | + + + | Home Phone | | + + + | Preferred Language | Unknown | + + + | Marital Status | | + + + | Samaritan Affiliation | Unknown | + + + | Race | Unknown | + + + | Ethnic Group | Unknown | + + + Author + + + | Author | [facility] | | | and [place] | + + + | Organization | [facility] | | | and [place] | + + + | Address | Unknown | + + + | Phone | Unavailable | + + + Support + + + + + | Name | Relationship | Address | Phone | + + + + + | Frances Borjas | ECON | [address] | | | | | [place] | | | | | [address] | | + + + + + Care Team Providers + +------+ + | Care Carpenter Assembler Name | Role | Phone | + +------+ + | Susan Gore NP | PCP | | + +------+ + Encounter Details +--------+ + + + + | Date | Type | Department | Care Team | Description | +--------+ + + + + | 02/24/ | Orders Only | [facility] | Trudy Ellington | | | 2016 | | [facility] | RUDDY Palomares [address] | | | | | CARE XRAY [address] | | | | | [address] | [place] [address] | | | | | [place], [place] | [phone] | | | | | [address] | | | | | | [phone] | | | +--------+ + + + [...] XR CHEST 2 VIEWS | Routin | 02/24/2017 | | Results for this | | | e | 2:42 PM | | procedure are in the | | | | PST | | results section. | + +--------+ + + + documented in this encounter Results XR Chest 2 Vws (02/24/2017 2:42 PM PST) + + | Specimen | + + | | + + + + + | Impressions | Performed At | + + + | 1. No acute cardiopulmonary process. Interval resolution of the | | | right-sided pneumonia. | | + + + + + + | Narrative | Performed At | + + + | JOE WALKER 1980 37 years Female XR CHEST 2 VIEW | | | FRONTAL AND LATERAL 02/24/2017 2:42 PM INDICATION: Persistent | | | cough. History of pneumonia. COMPARISON: Chest radiograph December | | | 2016. TECHNIQUE: Two view chest, PA and lateral views | | | FINDINGS: The cardiomediastinal contours are normal. There is no | | | mediastinal widening or shift. No pneumothorax or effusion. The | | | lungs are clear with no focal consolidation or pulmonary nodules. | | | Osseous structures are normal. Bilateral breast implants are again | | | noted. | | + + + + + | Procedure Note | + + | Mirza, Rad Conversion - 11/11/2018 7:43 PM PDT JOE FORBES years | | FemaleXR CHEST 2 VIEW FRONTAL AND SBXTYDZ70/5/2017 2:42 PM INDICATION: Persistent cough. | | History of pneumonia. COMPARISON: Chest radiograph December 23, 2016. TECHNIQUE: Two view | | chest, PA and lateral views FINDINGS: The cardiomediastinal contours are normal. There | | is no mediastinal widening or shift. No pneumothorax or effusion. The lungs are clear | | with no focal consolidation or pulmonary nodules. Osseous structures are normal. | | Bilateral breast implants are again noted. IMPRESSION: 1. No acute cardiopulmonary | | process. Interval resolution of the right-sided pneumonia. | | | |TECHNIQUE: Two view chest, PA and lateral views | | | |FINDINGS: The cardiomediastinal contours are normal. There is no mediastinal widening or s hift. No pneumothorax or effusion. The lungs are clear with no focal consolidation or pulm onary nodules. Osseous structures are normal. Bilateral breast | |implants are again noted. | | | |IMPRESSION: | |1. No acute cardiopulmonary process. Interval resolution of the right-sided pneumonia. | | | | | + + documented in this encounter Visit Diagnoses Not on filedocumented in this encounter"
--- OUTSIDE RECORDS SUMMARY | ~2019-02-02 | XMS | Encounter Summary ---
Demographics + + + | Address | NEED ADDRESS | | | [place] [address] | + + + | Home Phone | | + + + | Preferred Language | Unknown | + + + | Marital Status | | + + + | Jainism Affiliation | Unknown | + + + | Race | Unknown | + + + | Ethnic Group | Unknown | + + + Author + + + | Author | [facility] | | | and [place] | + + + | Organization | [facility] | | | and [...] [place] | | | | | [address] | | + + + + + Care Team Providers + +------+ + | Care Wet Char Conveyor Tender Name | Role | Phone | + +------+ + | Susan Gore NP | PCP | | + +------+ + Encounter Details +--------+ + + + + | Date | Type | Department | Care Team | Description | +--------+ + + + + | 05// | Orders Only | [facility] | Conversion | | | 2019 | | CONVERSION [address] | Transaction, | | | | | [address] | Provider Unknown | | | | | [place], [place] | [phone] | | | | | [address] | | | | | | [phone] | | | +--------+ + + + [...]
--- OUTSIDE RECORDS SUMMARY | ~2019-02-02 | XMS | Encounter Summary ---
Demographics + + + | Address | NEED ADDRESS | | | [place] [address] | + + + | Home Phone | | + + + | Preferred Language | Unknown | + + + | Marital Status | | + + + | Catholic Affiliation | Unknown | + + + | Race | Unknown | + + + | Ethnic Group | Unknown | + + + Author + + + | Author | [facility] | | | and [place] | + + + | Organization | [facility] | | [...] [place] | | | | | [address] | | + + + + + Care Team Providers + +------+ + | Care Laboratory Scientist Name | Role | Phone | + +------+ + PCP | Unavailable | + +------+ + Encounter Details +--------+ + + + + | Date | Type | Department | Care Team | Description | +--------+ + + + + | 01/08/ | Hospital | [facility] | Conversion | Pain of right upper | | 2014 | Encounter | [facility] | Transaction, | extremity | | | | ULTRASOUND [address] | Provider Unknown | | | | | LINDSAY MATHIS | | | | | | [place], [place] | (Fax) | | | | | [address] | | | | | | [phone] | | | +--------+ + + + [...] | + +--------+ + + + | VAS UPPER EXTREMITY | Routin | 01/08/2015 | | Results for this | | VENOUS RIGHT | e | 4:15 PM | | procedure are in the | | | | PDT | | results section. | + +--------+ + + + documented in this encounter Results VAS Upper Extremity Venous Right (01/08/2015 4:15 PM PDT) + + | Specimen | + + | | + + + + + | Impressions | Performed At | + + + | 1. The RIGHT arm and shoulder are NEGATIVE for acute or chronic | | | deep or superficial venous thrombosis. | | + + + + + + | Narrative | Performed At | + + + | JOE WALKER US UPPER EXTREMITY VENOUS DOPPLER RIGHT | | | 01/08/2015 4:15 PM History: 35 years. Female. RIGHT wrist | | | pain beginning 7 days ago. Breast augmentation surgery on 01/01/15. | | | No intravenous cannulation of the RIGHT arm for that surgery. | | | Technique: A high-resolution grayscale duplex transducer with color | | | and pulsed Doppler capability was utilized for imaging. The RIGHT | | | internal jugular, subclavian, axillary, brachial, cephalic, and | | | basilic veins were examined. Findings: All veins examined show | | | normal blood flow on color and pulsed Doppler ultrasound. Veins are | | | compressible in the upper arm. There is no evidence of acute or | | | chronic venous thrombosis. | | + + + + + | Procedure Note | + + | Mirza, Rad Conversion - 11/05/2018 8:35 AM PDT JOE [facility] UPPER EXTREMITY | | VENOUS DOPPLER RIGHT01/08/2015 4:15 PM History: 35 years. Female. RIGHT wrist pain | | beginning 7 days ago. Breast augmentation surgery on 01/01/15. No intravenous | | cannulation of the RIGHT arm for that surgery. Technique: A high-resolution grayscale | | duplex transducer with color and pulsed Doppler capability was utilized for imaging. The | | RIGHT internal jugular, subclavian, axillary, brachial, cephalic, and basilic veins | | were examined. Findings: All veins examined show normal blood flow on color and pulsed | | Doppler ultrasound. Veins are compressible in the upper arm. There is no evidence of | | acute or chronic venous thrombosis. IMPRESSION: 1. The RIGHT arm and shoulder are | | NEGATIVE for acute or chronic deep or superficial venous thrombosis. Electronically | | signed by Santos Rivera MD on 01/08/2015 4:27 PM | | | | | |IMPRESSION: | |1. The RIGHT arm and shoulder are NEGATIVE for acute or chronic deep or superficial venous thrombosis. | | | | | + + documented in this encounter Visit Diagnoses + + | Diagnosis | + + | Pain of right upper extremity | + + documented in this encounter"
--- NOTE | 2019-02-21 09:49 | PR ---
[facility] [address] [facility] [place] [address] Signed Progress Notes IP Datetime Report Generated by CPN: 02/21/2019 09:49 PROGRESS NOTES: [id number] Impression: Normal progression of labor Procedures: Artificial ROM; Sterile Vag Exam Plan: Continue present management; Anesthesia consult Informed Consent Obtain: Vaginal Delivery; Induction of Labor; Risks, Benefits and Alternatives Discussed VITAL SIGNS: [id number] Vital Signs: Reviewed; Within Normal Limits EXAM: [id number] Dilatation: 4.0 Effacement: 50 Station: -2 Uterine Contractions: irregular MEMBRANES: [id number] Membrane Status: Intact ROM Note: AROM with moderate clear fluid. Comments: Progressing. Will continue. Epidural prn. Fetus A: [id number] FHR Baseline: 130 Variability: Moderate 6-25bpm Accelerations: 15X15 Decelerations: None FHR Category: Category I Presentation: Vertex Comments on Fetus A: No evidence of metabolic acidosis Fetus B: [id number] Signing Physician: Nishi Waters MD Copies: ~ *Electronically Signed* 02/21/19 0949 NISHI WATERS MD PATIENT NAME: JOE KRISHNAN RECORD #: [id number] PROGRESS NOTE DATE OF : 82 PHYSICIAN: NISHI WATERS MD RPT #: [id number] REPORT IS CONFIDENTIAL AND NOT TO BE RELEASED WITHOUT AUTHORIZATION
--- NOTE | 2019-02-21 12:43 | PR ---
[facility] [address] [place], [place] [address] Signed Progress Notes IP Datetime Report Generated by CPN: 02/21/2019 12:43 PROGRESS NOTES: [id number] Impression: Slow Progression of Labor Procedures: Intrauterine Pressure Catheter; Sterile Vag Exam Plan: Augmentation Informed Consent Obtain: Vaginal Delivery; Induction of Labor; Risks, Benefits and Alternatives Discussed VITAL SIGNS: [id number] Vital Signs: Reviewed; Within Normal Limits EXAM: [id number] Dilatation: 4.5 Effacement: 50 Station: -2 Uterine Contractions: difficult to roller picker MEMBRANES: [id number] Membrane Status: Intact ROM Note: AROM with moderate clear fluid. Comments: Slow progress. Will place IUPC as difficult to roller picker contractions at this time. Suspect contractions are inadequate as well. Will increase pitocin as needed. Fetus A: [id number] FHR Baseline: 140 Variability: Moderate 6-25bpm Accelerations: 15X15 Decelerations: None FHR Category: Category I Presentation: Vertex Comments on Fetus A: No evidence of metabolic acidosis Fetus B: [id number] Signing Physician: Nishi Waters MD Copies: ~ *Electronically Signed* 02/21/19 1243 NISHI WATERS MD PATIENT NAME: JOE KRISHNAN PROGRESS NOTE DATE OF : 82 PHYSICIAN: NISHI WATERS MD RPT #: [id number] REPORT IS CONFIDENTIAL AND NOT TO BE RELEASED WITHOUT AUTHORIZATION
--- NOTE | 2019-02-22 08:10 | PR ---
[facility] [address] [place], [place] [address] Signed PP Progress Notes Datetime Report Generated by CPN: 02/22/2019 08:10 SUBJECTIVE: [id number] Pain: Within normal limits Nausea/Vomiting: Denies Vital Signs: [id number] Vital Signs: Reviewed; Within Normal Limits Notable Details: temp improved EXAM: [id number] Cardiovascular: Not Done Respiratory: Not Done Abdomen/Uterus: Abnormal Lochia: Normal Vulva/Perineum: Not Done Breasts: Not Done CVA Tenderness: Not Done Extremities: Normal Incision: Not Applicable Progress: Not Applicable Exam Comments: Fundus firm, NT @ U-1. H/H 8.9/26.9, WBC 11.4, plat 222k IMPRESSION/PLAN/PROCEDURES: [id number] Impression: Normal progression Other Impression: sad at leaving the baby Plan: Discharge Procedures: None Progress Notes: She is doing well physically and temp much improved which I think was related to the Cytotec. 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 She would like to start Wellbutrin. Signing Physician: Nishi Waters MD Copies: ~ *Electronically Signed* 02/22/19 0810 NISHI WATERS MD PATIENT NAME: JOE KRISHNAN PROGRESS NOTE DATE OF : 82 PHYSICIAN: NISHI WATERS MD RPT #: [id number] REPORT IS CONFIDENTIAL AND NOT TO BE RELEASED WITHOUT AUTHORIZATION
== END 2019-02-22 10:10 | disposition home or self-care (01) | DRG 807 ==
LOC: FBCO 08:34 → EDSTATUS 02-21 05:43 → FBC 02-21 05:48 → FBCO 02-21 10:40 → FBC 02-22 10:10
PROVIDERS: ADMIT Obstetrics & Gynecology
PROC: 10E0XZZ Delivery of Products of Conception, External Approach (ICD-10-PCS; principal; 2019-02-21)
PROC: 0KQM0ZZ Repair Perineum Muscle, Open Approach (ICD-10-PCS; 2019-02-21)
PROC: 10907ZC Drainage of Amniotic Fluid, Therapeutic from Products of Conception, Via Natural or Artificial Opening (ICD-10-PCS; 2019-02-21)
PROC: 10H07YZ Insertion of Other Device into Products of Conception, Via Natural or Artificial Opening (ICD-10-PCS; 2019-02-21)
PROC: 3E0P7VZ Introduction of Hormone into Female Reproductive, Via Natural or Artificial Opening (ICD-10-PCS; 2019-02-21)
PROC: 00HU33Z Insertion of Infusion Device into Spinal Canal, Percutaneous Approach (ICD-10-PCS; 2019-02-21)
PROC: 3E0R3BZ Introduction of Anesthetic Agent into Spinal Canal, Percutaneous Approach (ICD-10-PCS; 2019-02-21)
DX: O99.824 Streptococcus B carrier state complicating childbirth (principal); Z37.0 Single live birth; Z3A.39 39 weeks gestation of pregnancy; O70.1 Second degree perineal laceration during delivery; O99.344 Other mental disorders complicating childbirth; F41.8 Other specified anxiety disorders; O99.324 Drug use complicating childbirth; F12.90 Cannabis use, unspecified, uncomplicated; O72.1 Other immediate postpartum hemorrhage; Z33.3 Pregnant state, gestational carrier; Z88.1 Allergy status to other antibiotic agents; Z88.5 Allergy status to narcotic agent; Z79.899 Other long term (current) drug therapy; Z86.19 Personal history of other infectious and parasitic diseases
CPT/HCPCS: 01960; 36415; 82803; 85027; A9270; J2540; J2590; J2795; J7060; J7121